=== PATIENT | female | born 1970 | race Caucasian/White ===

== ENCOUNTER 2019-01-18 19:30 | Emergency (ER) | payer BC, OTHER ==
[2019-01-18 19:52] VITALS: BP 131/71; PULSE 80; TEMP 98.3; BMI 32.1
[2019-01-18] MEDS ORDERED: FAMOTIDINE 20 MG/50 ML IVPB 20 MG/50 ML MG IVPB ONE ×2 (20:41→20:43)
[2019-01-18] MEDS ORDERED: methylPREDNISolone NA SUCC 125 MG/2 ML VIAL IVPB ONE (20:41)
[2019-01-18] MEDS ORDERED: methylPREDNISolone NA SUCC 125 MG/2 ML VIAL ONE (20:43)
[2019-01-18] MEDS ORDERED: hydrOXYzine HCL 25 MG TABLET (FP) PO ONE (23:30)
--- NOTE | 2019-01-19 00:27 | PDOC ---
Documentation entered by Abad Guevara SCRIBE, acting as scribe for María Elena Laguerre MD. María Elena Laguerre MD: This documentation has been prepared by the Ismael crenshaw Daniel, SCRIBE, under my direction and personally reviewed by me in its entirety. I confirm that the documentation accurately reflects all work, treatment, procedures, and medical decision making performed by me. History of Present Illness - General Chief Complaint: Hives Stated Complaint: HIVES History Source: Patient Exam Limitations: No Limitations - History of Present Illness Initial Comments: 01/18/19 20:45 The patient is a 48 year old female with no past medical history here today for evaluation of hives and throat hoarseness. The patient reports that she developed hives on her feet on sunday (01/14/19) after a possible insect bite. She reports taking benadryl and starting a taper dose of prednisone after going to urgent care yesterday. She notes that her hives traveled throughout her body and that she developed throat hoarseness today. Patient reports going to [facility] 3 months ago and having a similar but less serious episode. She denies any new exposure except for eating jackie prior to her developing hives. Patient denies headache, lightheadedness. Denies fever, chills. Denies chest pain, shortness of breath. Denies nausea, vomiting, diarrhea, abdominal pain. Allergies: pineapple, shellfish PCP: Leobardo Villarreal Past History - Past Medical History Allergies/Adverse Reactions: Allergies Allergy/AdvReac Type Severity Reaction Status Date / Time No Known Drug Allergies Allergy Verified 10/23/14 17:31 pineapple Allergy Hives Verified 10/23/14 17:31 shellfish AdvReac Hives Uncoded 05/11/14 07:42 Home Medications: Ambulatory Orders Diphenhydramine [Benadryl -] 50 mg PO PRN PRN 01/18/19 Escitalopram Oxalate [Lexapro -] 10 mg PO DAILY 01/18/19 Methylprednisolone [Medrol Dose Shawn] 4 mg PO ASDIR 01/18/19 Topiramate [Topamax] 25 mg PO DAILY 01/18/19 Triamcinolone 0.5% Cream [Aristocort 0.5% Cream -] 1 gm TP TID PRN #1 tube 01/18 hydrOXYzine HCL [Atarax -] 25 mg PO TID PRN #15 tablet 01/18/19 Anemia: Yes (R/T Loestrin 4 yrs ago) Asthma: No Cancer: No Cardiac Disorders: No CVA: No COPD: No CHF: No Dementia: No Diabetes: No GI Disorders: No Disorders: No HTN: No Hypercholesterolemia: No Liver Disease: No Psychiatric Problems: Yes (ANXIETY, DEPRESSION) Seizures: No Thyroid Disease: No - Surgical History Abdominal Surgery: No Appendectomy: No Cardiac Surgery: No Cholecystectomy: No Lung Surgery: No Neurologic Surgery: No Orthopedic Surgery: No - Immunization History Td Vaccination: Yes Immunization Up to Date: No - Suicide/Smoking/Psychosocial Hx Smoking Status: No Smoking History: Current some day smoker Have you smoked in the past 12 months: No Number of Cigarettes Smoked Daily: 0 Information on smoking cessation initiated: Yes Hx Alcohol Use: No Drug/Substance Use Hx: No Substance Use Type: None Hx Substance Use Treatment: No Review of Systems - Review of Systems Able to Perform ROS?: Yes Comments:: 01/18/19 20:45 All systems are reviewed and negative except as noted in the HPI *Physical Exam - Vital Signs Last Vital Signs Temp Pulse Resp BP Pulse Ox 98.3 F 80 16 131/71 100 01/18/19 19:35 01/18/19 19:35 01/18/19 19:35 01/18/19 19:35 01/18/19 19:35 - Physical Exam Comments: 01/18/19 20:45 GENERAL: Awake, alert, and fully oriented, in no acute distress HEAD: No signs of trauma EYES: PERRLA, EOMI, sclera anicteric, conjunctiva clear ENT: Auricles normal inspection, hearing grossly normal, nares patent, oropharynx clear without exudates. Moist mucosa. No lip, tongue, or uvular edema. NECK: Normal ROM, supple, no lymphadenopathy, JVD, or masses. No stridor. LUNGS: Breath sounds equal, clear to auscultation bilaterally. No wheezes, and no crackles HEART: Regular rate and rhythm, normal S1 and S2, no murmurs, rubs or gallops ABDOMEN: Soft, nontender, normoactive bowel sounds. No guarding, no rebound. No masses EXTREMITIES: Normal range of motion, no edema. No clubbing or cyanosis. No cords, erythema, or tenderness NEUROLOGICAL: Cranial nerves II through XII grossly intact. Normal speech, normal gait SKIN: +generalized erythematous maculopapular rash involving the bilateral cheeks, neck, upper back, anterior chest, abdomen, and the bilateral upper and lower extremities (confluent). Warm, Dry, normal turgor, no other vesicles, lesions, open wounds noted. ED Treatment Course - Medications Given in the ED: ED Medications Discontinued Medications Generic Name Dose Route Start Last Admin Trade Name Aby PRN Reason Stop Dose Admin Diphenhydramine HCl 50 mg 01/18/19 20:41 01/18/19 20:54 Benadryl Injection - IVPB 01/18/19 20:42 50 mg ONCE ONE Administration Famotidine/Sodium Chloride 20 mg in 50 mls @ 100 mls/hr 01/18/19 20:41 20:54 Pepcid 20 Mg Premixed Ivpb - IVPB 01/18/19 21:10 100 mls/hr ONCE ONE Administration Methylprednisolone Sodium Succinate 125 mg 01/18/19 20:41 01/18/19 21:03 Solu-Medrol - IVPB 01/18/19 20:42 125 mg ONCE ONE Administration Medical Decision Making - Medical Decision Making As noted above, this 48-year-old woman presents with generalized urticaria for the last 4 days. The etiology of her urticaria is unclear since she cannot recall any new exposure (food or medication) and she has not had any febrile illness. She has been seen in urgent care and has been started on a Medrol dose pack along with Benadryl. She presents tonight because she has developed hives on her cheeks. She also complained of hoarseness. There is no difficulty swallowing or breathing noted. Exam as noted above. Because of the persistent and somewhat progressive nature of the patient's urticaria, she will receive IV steroid/diphenhydramine. It was noted to the patient that she had no lip/tongue/uvular edema. Also, on exam she had no evidence of stridor or wheezing. Solu-Medrol 125 mg IV/Benadryl 50 mg IV/Pepcid 20 mg IV administered. After above medications given and observation for approximately 2 hours, urticaria markedly improved. Patient still had scattered urticaria, most notably on the right side of her neck, but no further hoarseness and no development of difficulty swallowing/breathing. The patient was advised to continue her Medrol Dosepak tomorrow. She asked for steroid topical prescription to be used on areas of persistent hives. Triamcinolone 0.5% cream prescription sent to her pharmacy. Also, hydroxyzine 25 mg up to 3 times a day can be used instead of Benadryl for persistent pruritus. Meanwhile, the patient has been urged to follow-up with an media executive and referral information for provided for her. She should return to the emergency room if she develops any difficulty swallowing/breathing or if she develops lip/tongue swelling *DC/Admit/Observation/Transfer Diagnosis at time of Disposition: Urticaria - Discharge Dispostion Disposition: HOME Condition at time of disposition: Stable - Prescriptions Prescriptions: hydrOXYzine HCL [Atarax -] 25 mg PO TID PRN #15 tablet PRN Reason: For Itching Triamcinolone 0.5% Cream [Aristocort 0.5% Cream -] 1 gm TP TID PRN #1 tube PRN Reason: For Itching - Referrals Referrals: Robe Macias MD [Staff Physician] - Leobardo Villarreal MD [Primary Care Provider] - 3 days - Patient Instructions Printed Discharge Instructions: Hives Additional Instructions: continue Medrol dose shawn as prescribed Atarax 25mg up to 3 X a day for itching Triamcinolone 0.5% up to 3 X a day to rash as needed for itching Pepcid 20mg daily return to ER if you have difficulty swallowing or breathing followup with media executive( for example, in Dr. Macias ENT office) as discussed see Dr Villarreal within the next 2-3 days - Post Discharge Activity
== END 2019-01-18 23:43 | disposition home or self-care (01) ==
LOC: FER 19:30
PROC: 3E033GC Introduction of Other Therapeutic Substance into Peripheral Vein, Percutaneous Approach (ICD-10-PCS; principal; 2019-01-18)
DX: L50.9 Urticaria, unspecified (principal); F41.8 Other specified anxiety disorders; F17.210 Nicotine dependence, cigarettes, uncomplicated
CPT/HCPCS: 99281-25